=== PATIENT | male | born 1950 | race Caucasian/White ===

== ENCOUNTER 2023-07-25 05:51 | Day surgery (SDC) | payer OTHER, SELFPAY ==
[2023-07-10 10:02] VITALS: BMI 33.3
[2023-07-10 10:23] LABS: % Basophils 0.8 % (0-2); % Immature Granulocytes 0.3 % (0-0.5); % Lymphocytes 23.7 % (20.5-51.1); % Monocytes 8.1 % (1.7-9.3); % Neutrophils 64.1 % (42.2-75.2); Absolute Basophils 0.1 10^3/uL (0-0.2); Absolute Eosinophils 0.2 10^3/uL (0-0.7); Absolute Lymphocytes 1.9 10^3/uL (1.2-3.4); Absolute Monocytes 0.6 10^3/uL (0.1-0.6); Absolute Neutrophils 5.1 10^3/uL (1.4-6.5); Hematocrit 45.3 % (39.0-52.0); Hemoglobin 14.8 g/dL (13.0-18.0); Mean Corp Hgb Conc. 32.7 g/dL (33.0-37.0); Mean Corpuscular Hgb 26.4 pg (27.0-31.0); Mean Corpuscular Volume 80.9 fL (80.0-94.0); Mean Platelet Volume 11.5 fL (7.4-10.4); Nucleated Red Blood Cells % 0 % (-); Platelet Count 182 10^3/uL (130-400); Red Cell Dist. Width 17.5 % (11.5-14.5); White Blood Cell Count 7.9 10^3/uL (4.8-10.8)
[2023-07-10 10:43] LABS: PT 22.6 Sec (11.4-14.6)
[2023-07-10 10:59] LABS: ALT (SGPT) 18 U/L (0-50); AST (SGOT) 31 U/L (17-59); Albumin 4.8 g/dl (3.5-5.0); Alkaline Phosphatase 117 U/L (38-126); Blood Urea Nitrogen 40 mg/dl (9-20); Calcium 10.1 mg/dl (8.4-10.2); Carbon Dioxide 31 mmol/L (22-30); Chloride 96 mmol/L (98-107); Estimated Creatinine Clearance 40 ml/min; Glucose 157 mg/dl (70-99); Magnesium 2.6 mg/dl (1.6-2.3); Potassium 4.7 mmol/L (3.5-5.1); Sodium 139 mmol/L (135-145); Total Bilirubin 0.7 mg/dl (0.2-1.3); Total Protein 8.1 g/dl (6.3-8.2)
[2023-07-25] VITALS (18 sets, daily range): BP systolic 90–140; BP diastolic 64–95; PULSE 72; BMI 32.9
[2023-07-25 07:08] LABS: Glucose - Point of Care 145 mg/dl (70-99)
[2023-07-25 07:17] LABS: INR 1.37; PT 16.7 Sec (11.4-14.6)
[2023-07-25] MEDS: NSS 1000 IV (07:18)
[2023-07-25 08:52] LABS: ACT-LR - POC 300 Seconds (116-155)
[2023-07-25 09:12] LABS: ACT-LR - POC 388 Seconds (116-155)
[2023-07-25 09:33] LABS: ACT-LR - POC 319 Seconds (116-155)
[2023-07-25 10:01] LABS: ACT-LR - POC 153 Seconds (116-155)
--- NOTE | 2023-07-25 10:13 | ITS.CL.ABL ---
[employer] Business [employer] Consultant - Ablation
Ablation
Procedure Report:
ELECTROPHYSIOLOGY ABLATION REPORT
Date of Procedure: July 25, 2023
Referring: Dr. Rashmi Aj
INDICATION: Ventricular bigeminy with symptomatic bigeminy and depressed ejection fraction
HISTORY: Prior history of nonischemic cardiomyopathy status post BiV ICD and bioprosthetic aortic valve and bioprosthetic mitral valve surgery along with maze. Patient has recurrent atrial fibrillation and is programmed VVIR. His morphology
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 He has had progressive PVC burden and is intolerant to multiple antiarrhythmic drug including amiodarone as well as prior inefficacy
PROCEDURE:
After patient safety timeout and informed consent the patient was sedated by the anesthesiology service. He does have significant restless leg syndrome and required significant sedation. We performed the procedure under conscious sedation however
to avoid suppression of PVCs. The patient's [employer] BiV ICD was reprogrammed with therapies off for the procedure and ICD therapies were turned back on at the end of the procedure by the [employer] dealer compliance representative. Underlying rhythm is a sparse
escape after 4 to 6-second pause.
1 sedated under ultrasound guidance a 5 [place] RFA and 8 [place] RFV sheaths were placed as well as a 9 [place] LFV for intracardiac ultrasound. ALISSON mapping was utilized. A 4 mm tactic cath was utilized for retrograde aortic approach across the
bioprosthetic aortic valve. Intracardiac ultrasound demonstrated no significant bioprosthetic valvular dysfunction of the mitral bioprosthesis or the aortic bioprosthesis. Ejection fraction of approximately 30 to 35% and the patient at baseline
was in ventricular bigeminy with a clinical PVC which was right bundle left inferior with a QR in lead V1 and positive throughout suggesting an aorto mitral continuity site of origin. This region was extremely calcified from prior double
bioprosthetic valve surgery. Initial attempts with catheter and a pigtail curve were unable to cross the valve. Under intracardiac ultrasound and fluoroscopic guidance we utilized the 4 mm tactic cath and a straight position to cross the valve
twice with significant difficulty. Initial crossing demonstrated the clinical PVC to be approximately 45 to 50 ms early bipolar signal and a QS in the unipolar signal in the aorto mitral continuity just beyond the aortic valve as determined by
intracardiac ultrasound and fluoroscopic imaging. We paced the left ventricle in this region demonstrating a 95 to 96% pace map match in the aorto mitral continuity and ablation in this region immediately suppressed the clinical PVC and 30 to
60-second lesions were given in this region at 30 to 40 W and targeting a 10 to 15 g force for a total of approximately 9 minutes of radiofrequency energy. After a few minutes sparse clinical PVCs returned and at a site slightly more posterior on
the opposite end of one of the bioprosthetic struts there was also suppression and then elimination of the clinical PVC with an additional 4 minutes of radiofrequency energy at 10 to 20 g force and 30 W. The clinical PVC did not return for greater
than 45 minutes.
Post waiting. There was sparse nonclinical PVC which were referred to his PVC to which we also mapped which was right bundle right inferior with a QS in lead I suggesting an epicardial morphology superior and lateral to the mitral valve prosthesis
at the base. We mapped the entirety of the mitral bioprosthesis and were at best on time with the second PVC at approximately 12-1 o'clock superior to the mitral prosthesis at the base and approximately a 1 to 1.5 cm more lateral to the area of
ablation for the clinical PVC. We did perform 30 to 45-second lesions in this region without suppression of the second PVC and given prior cardiac surgery we elected to complete the procedure at this point to monitor for clinical improvement.
IV heparin bolus followed by continuous infusion to maintain ACT at 250-350 seconds. The ALISSON catheter was positioned within the LV cavity using a retrograde aortic approach with some difficulty. The mapping/ablation catheter was then
positioned in a similar fashion within the LV and the 3-D map was created first in SR with activation mapping performed in the left ventricle for the clinical PVC and PVC to as above. Given the abolishment of the clinical PVC and the location of
the second PVC we completed the procedure and protamine was given 35 mg. The femoral venous sheaths were removed with [id number] stitch applied and manual pressure was held to the 9 [place]ian RFA sheath. The patient tolerated the procedure well
and will be maintained overnight for observation of his right femoral arterial site.
Pulse fluoroscopy: 16.7 minutes of pulse fluoroscopy and 112 mGy
COMPLICATIONS: None
SUMMARY: Status post successful ablation of the patient's clinical PVC right bundle left inferior with a small QR located in the aorto mitral continuity. After abolishing the clinical PVC the patient had a second PVC which was determined to be mid
myocardial or epicardial superior lateral to the mitral bioprosthesis which could not be suppressed from the LV endocardium.
RECOMMENDATIONS:
1. Continue cardiac medicines and resume warfarin
2. Will follow the patient's percentage pacing and clinical symptoms with close follow-up with his heart failure transplant team at and with me in the office for his device and arrhythmia issues
Copy to: Dr. Rashmi Aj Heart Failure/Transplant Cardiology [facility]
[2023-07-25 11:48] LABS: Glucose - Point of Care 124 mg/dl (70-99)
--- NOTE | 2023-07-25 12:11 | PTCARENOTE ---
Received pt post EPS. VSS. B/L groin sites w/ FOE intact. Will monitor.
[2023-07-25] MEDS: ZOFRAN 4 MG IV (15:48)
--- NOTE | 2023-07-25 16:12 | CM ---
Chart reviewed. Patient is independent of ADLS, lives with his in a [address], [address], 0 [address]. Plan is for the patient to return home. CM to follow
[2023-07-25 16:26] LABS: Glucose - Point of Care 138 mg/dl (70-99)
[2023-07-25] MEDS: MAGNESIUM OXIDE 500 MG PO (16:28)
[2023-07-25] MEDS: CLARITIN 10 MG PO (16:28)
[2023-07-25] MEDS: BUMEX 1 MG PO (16:28)
--- NOTE | 2023-07-25 17:32 | PTCARENOTE ---
Pt c/o nausea. zofran given . nausea resolved. Will monitor.
[2023-07-25] MEDS: PRAVACHOL 20 MG PO (17:35)
[2023-07-25] MEDS: COUMADIN 4 MG PO (17:35)
[2023-07-25] MEDS: REQUIP 0.25 MG PO (17:35)
[2023-07-25] MEDS: MAALOX 30 ML PO (17:55)
--- NOTE | 2023-07-25 18:14 | PTCARENOTE ---
Pt continues to c/o nausea. Pt w/ a poor appetite for dinner. Pt given maalox, per his request. Will monitor.
[2023-07-25] MEDS: ENTRESTO 24 MG/26 MG 1 TAB PO (20:06)
[2023-07-25] MEDS: TOPROL XL 37.5 MG PO (20:06)
[2023-07-25] MEDS: PROTONIX 40 MG PO (20:06)
[2023-07-25] MEDS: CARAFATE 1 GRAM PO (22:25)
[2023-07-25] MEDS: LANTUS 0.0899999999999999967 UNITS SC (22:25)
[2023-07-25 22:28] LABS: Glucose - Point of Care 152 mg/dl (70-99)
--- NOTE | 2023-07-26 00:33 | PTCARENOTE ---
Pt received start of shift, HR AV-paced/v-paced. B/L groin sites CDI, soft, no hematoma. Pt denies any CP, SOB, or lightheadedness/dizziness at this time. Informed to notify RN if any changes, call barrios within reach.
[2023-07-26 04:30] VITALS: PULSE 70
--- NOTE | 2023-07-26 05:08 | DOWNTIME ---
There was a [employer] Client Money Market Clerk Downtime on 07/26/2023 from 0100 to 07/26/2023 at 0439. Downtime documentation of patient's care, including medication administrations, has been reconciled in the electronic record per guidelines. Refer to the
patient's paper chart under the miscellaneous tab to see printed paper medication records and downtime forms.
[2023-07-26 05:14] VITALS: BP 105/76
[2023-07-26 05:37] LABS: Hematocrit 42.2 % (39.0-52.0); Hemoglobin 13.1 g/dL (13.0-18.0); Mean Corpuscular Hgb 26.2 pg (27.0-31.0); Mean Corpuscular Volume 84.4 fL (80.0-94.0); Mean Platelet Volume 12.3 fL (7.4-10.4); Platelet Count 137 10^3/uL (130-400); Red Cell Dist. Width 17.8 % (11.5-14.5); White Blood Cell Count 8.3 10^3/uL (4.8-10.8)
[2023-07-26 05:41] LABS: INR 1.41
[2023-07-26 05:59] LABS: Blood Urea Nitrogen 35 mg/dl (9-20); Calcium 8.8 mg/dl (8.4-10.2); Carbon Dioxide 27 mmol/L (22-30); Chloride 102 mmol/L (98-107); Estimated Creatinine Clearance 40 ml/min; Glucose 123 mg/dl (70-99); Magnesium 2.3 mg/dl (1.6-2.3); Potassium 4.7 mmol/L (3.5-5.1); Sodium 135 mmol/L (135-145)
[2023-07-26 07:54] VITALS: BP 109/77
[2023-07-26] MEDS: MAGNESIUM OXIDE 500 MG PO (08:04)
[2023-07-26] MEDS: LEXAPRO 10 MG PO (08:04)
[2023-07-26] MEDS: TOPROL XL 37.5 MG PO (08:04)
[2023-07-26] MEDS: LOW STRENGTH ASPIRIN 81 MG PO (08:05)
[2023-07-26] MEDS: PROTONIX 40 MG PO (08:05)
[2023-07-26] MEDS: ENTRESTO 24 MG/26 MG 1 TAB PO (08:05)
[2023-07-26] MEDS: FARXIGA 10 MG PO (08:05)
[2023-07-26] MEDS: BUMEX PO (08:06)
--- NOTE | 2023-07-26 08:22 | W.PN.CARDCBS ---
Addendum entered and electronically signed by Onofre Clark MD 07/26/23 10:20:
Patient seen and examined
Agree with MOBILE DEVICE ENGINEER note assessment
Agree with MOBILE DEVICE ENGINEER plan
Exam:
HEENT normocephalic atraumatic
jvp 6
cor regular
lungs ctab
abd soft nt nd
no ext edema
Nonfocal neurologically
Impression:
Symptomatic PVC's
post PVC ablation 07/25/23
Afib post PVI 06/2021
prior AVR/MVR/MAZE 07/2021 @[facility]
CAD PCI RCA and LAD 2016
HTN
HLD
GERD
CKD 3b
DM2
TAISHA/CPAP
chronic HFrEF 30-35%
SSS
prior BiV ICD 2021
OA
SUMMARY: Status post successful ablation of the patient's clinical PVC right bundle left inferior with a small QR located in the aorto mitral continuity. After abolishing the clinical PVC the patient had a second PVC which was determined to be mid
myocardial or epicardial superior lateral to the mitral bioprosthesis which could not be suppressed from the LV endocardium.
Plan:
post ablation feels good
groins stable
tele Vpaced
Warfarin resumed last night, INR subtherapeutic, will check INR on Monday, goal INR 2-3
HF continue Farxiga, metoprolol xl, Entresto
Activity restrictions reviewed
Cr stable 1.8
f/u Dr. Pena 2 mo
Home today
Original Note:
Today's Communication / Plan
-
post PVC ablation
stable for d/c home
Impression / Plan
-
PCP: Dave Thomas MD
CDY: Joel Wu MD
Impression:
Symptomatic PVC's
post PVC ablation 07/25/23
Afib post PVI 06/2021
prior AVR/MVR/MAZE 07/2021 @[facility]
CAD PCI RCA and LAD 2016
HTN
HLD
GERD
CKD 3b
DM2
TAISHA/CPAP
chronic HFrEF 30-35%
SSS
prior BiV ICD 2021
OA
SUMMARY: Status post successful ablation of the patient's clinical PVC right bundle left inferior with a small QR located in the aorto mitral continuity. After abolishing the clinical PVC the patient had a second PVC which was determined to be mid
myocardial or epicardial superior lateral to the mitral bioprosthesis which could not be suppressed from the LV endocardium.
Plan:
post ablation feels good
groins stable
tele Vpaced
Warfarin resumed last night, INR subtherapeutic, will check INR on Monday, goal INR 2-3
HF continue Farxiga, metoprolol xl, Entresto
Activity restrictions reviewed
Cr stable 1.8
f/u Dr. Pena 2 mo
Home today
Progress Note - Supervisor Grounds
Subjective
Date of Service: July 26, 2023
no cp, sob, mild PND
Objective
Labs:
07/26/23 05:20
07/26/23 05:20
Labs
Hgb 13.1 g/dL (13.0-18.0) 07/26/23 05:20
Hct 42.2 % (39.0-52.0) 07/26/23 05:20
Plt Count 137 10^3/uL (130-400) 07/26/23 05:20
PT 17.0 Sec (11.4-14.6) H 07/26/23 05:20
INR 1.41 07/26/23 05:20
Sodium 135 mmol/L (135-145) 07/26/23 05:20
Potassium 4.7 mmol/L (3.5-5.1) 07/26/23 05:20
BUN 35 mg/dl (9-20) H 07/26/23 05:20
Creatinine 1.8 mg/dL (0.7-1.3) H 07/26/23 05:20
Glucose 123 mg/dl (70-99) H 07/26/23 05:20
Vital Signs and I&O:
Vital Signs
Temp Pulse Resp BP Pulse Ox
98.7 F 70 20 109/77 93
07/26/23 07:59 07/26/23 06:00 07/26/23 07:59 07/26/23 08:04 07/26/23 08:08
Vital Signs
Temp Pulse Resp BP Pulse Ox
98.7 F 70 20 109/77 93
07/26/23 07:59 07/26/23 06:00 07/26/23 07:59 07/26/23 08:04 07/26/23 08:08
Intake & Output
07/24/23 07/25/23 07/26/23 07/27/23
06:59 06:59 06:59 06:59
Intake Total 640 / 640
Output Total 400 / 400
Balance 240 / 240
Physical Exam
Physical Exam
NAD< AOX3
S1, S2, RRR
exp wheeze t/o upper/lower lungs, no rhonchi
SNTND bsx4
b/l groins c/d/i no HT, soft
[2023-07-26 09:26] VITALS: BP 91/66
--- NOTE | 2023-07-26 09:59 | W.DS.TRANS ---
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
-
Discharge Instructions:
Discharge Diagnosis/Procedures PVC, s/p ablation
Diet Low Cholesterol
Driving Restrictions No driving for 24 hours
Blood Work Check INR on Monday
Instructions:
Stand-Alone Forms: DC Instructions- Cath/EP Lab
Changes to Home Medications: No
Discharge Medications:
DC Medications w/original date entered in [employer]
escitalopram oxalate 10 mg tablet 10 mg PO DAILY Depression 11/15/19
loratadine 10 mg tablet 10 mg PO QPM Allergies 06/14/21
pravastatin 20 mg tablet 20 mg PO QPM High cholesterol 06/14/21
pantoprazole 40 mg tablet,delayed release 40 mg PO BID Gastrointestinal issue 07/14/21
acetaminophen 500 mg tablet 1,000 mg PO Q6H PRN pain 11/17/21
aspirin 81 mg chewable tablet 81 mg PO DAILY Blood clot prevention/tx 11/17/21
bumetanide 2 mg tablet 1 mg PO DAILY Fluid retention/Swelling 11/17/21
magnesium oxide 400 mg PO DAILY Supplement 11/17/21
metoprolol succinate 25 mg tablet,extended release 24 hr 37.5 mg PO BID Blood pressure 11/17/21
multivitamin 1 tab PO NOON Stroke 11/17/21
ropinirole 0.25 mg tablet 0.25 mg PO QPM Neurological Condition 11/17/21
sucralfate 1 gram tablet (Carafate) 1 g PO HS Gastrointestinal issue 11/17/21
warfarin 3 mg tablet 4 mg PO QPM Blood clot prevention/tx 11/17/21
dapagliflozin propanediol 10 mg tablet (Farxiga) 10 mg PO DAILY 07/04/23
insulin glargine 100 unit/mL (3 mL) subcutaneous pen 9 unit SC HS Diabetes 07/04/23
sacubitril 24 mg-valsartan 26 mg tablet 1 tab PO BID 07/04/23
Home Medication Changes
Pending Results: No
--- NOTE | 2023-07-26 10:38 | PTCARENOTE ---
Pt seen by and Fozia Solano NP. Pt up walking in halls. Telemetry and IV device removed. Discharge instructions reviewed with pt and his regarding activity and driving instructions, wound care, medications and their possible side
effects, reporting cares and concerns and follow up appt's. Very good understanding verbalized. Pt escorted out via wheelchair and discharged to home.
== END 2023-07-26 10:30 | disposition home or self-care (01) ==
LOC: CATH 05:51
PROVIDERS: Nurse Practitioner; ATTENDING PHYSICIAN Internal Medicine Cardiovascular Disease; FAMILY PHYSICIAN Internal Medicine; OTHER PHYSICIAN Internal Medicine Cardiovascular Disease
DX: I48.19 Other persistent atrial fibrillation (principal); I13.0 Hypertensive heart and chronic kidney disease with heart failure and stage 1 through stage 4 chronic kidney disease, or unspecified chronic kidney disease; R00.8 Other abnormalities of heart beat; E11.22 Type 2 diabetes mellitus with diabetic chronic kidney disease; N18.4 Chronic kidney disease, stage 4 (severe); I50.42 Chronic combined systolic (congestive) and diastolic (congestive) heart failure; Z87.891 Personal history of nicotine dependence; E11.21 Type 2 diabetes mellitus with diabetic nephropathy; E11.40 Type 2 diabetes mellitus with diabetic neuropathy, unspecified; I49.5 Sick sinus syndrome; I25.10 Atherosclerotic heart disease of native coronary artery without angina pectoris; G47.33 Obstructive sleep apnea (adult) (pediatric); E78.5 Hyperlipidemia, unspecified; F32.A Depression, unspecified; F41.9 Anxiety disorder, unspecified; K21.9 Gastro-esophageal reflux disease without esophagitis; M19.90 Unspecified osteoarthritis, unspecified site; G47.00 Insomnia, unspecified; I25.5 Ischemic cardiomyopathy; Z95.0 Presence of cardiac pacemaker; Z95.5 Presence of coronary angioplasty implant and graft; Z79.899 Other long term (current) drug therapy; R42 Dizziness and giddiness; R00.2 Palpitations; R06.02 Shortness of breath; R53.83 Other fatigue; I87.2 Venous insufficiency (chronic) (peripheral); Z86.718 Personal history of other venous thrombosis and embolism; Z90.79 Acquired absence of other genital organ(s); I42.8 Other cardiomyopathies; E66.9 Obesity, unspecified; Z68.33 Body mass index [BMI] 33.0-33.9, adult; Z95.3 Presence of xenogenic heart valve; Z79.82 Long term (current) use of aspirin; Z79.01 Long term (current) use of anticoagulants; Z85.46 Personal history of malignant neoplasm of prostate
CPT/HCPCS: 93662; C1894; C1769; C2630; C1892; C1759; 36415; 76937; 80048; 80053; 82962; 83735; 85025; 85027; 85347; 85610; 86850; 86900; 86901; 93005; 93654; 93655; 94660